=== PATIENT | female | born 1950 | race Caucasian/White ===

== ENCOUNTER 2017-09-01 10:44 | Inpatient (IN) | payer MEDICARE, MEDICAID ==
[~2017-09-01] VITALS: Ht 157.5 cm; Wt 53.1 kg
[~2017-09-01 10:44] MED LIST: ACET500T68 PO; ALPR-1 PO; ALPR-445 PO; ALPR-459 PO; ALPR-460 PO; ATOR20TA65 PO; BUPR-124 PO; CA C1TAB85 PO; CALC-18 PO; CALC1TAB85 PO; CALC600T63 PO; CHOL10005 PO; CHOL200025 PO; CHOL200074 PO; CHOL500016 PO; DESM0.1T12 PO; DESM0.2T15 PO; DEXT5CAP3 PO; DICL100G39 TOP; DICY20TA70 PO; DUL30 PO; DULO30CA35 PO; DULO30CA6 PO; DULO60CA56 PO; ESTR0.5T16 PO; ESTR1TAB PO; FENT-15 TD; FLUT16SP20 NS; FLUT9.9S; FURO-45 PO; GAB300 PO; GABA-549 PO; GLUC100026 PO; LEVO50TA86 PO; LEVO75TA73 PO; LIDO10VI16 INTRA-ART; LISI2.5T60 PO; LISI5TAB25 PO; LOPE-109 PO; LORA-630 PO; LOSA-50 PO; LOSA100T67 PO; LOSA50TA72 PO; MES400 PO; MESA0.374 PO; MESA1.2T2 PO; MESA800T3 PO; MICO45CR VG; MIRT7.5T2 PO; MOM PO; MORP-1 PO; MORP-20 PO; MORP-21 PO; MORP-51 PO; MORP20CA PO; MORP60TA50 PO; Morphine Sulfate PO; OMEP-125 PO; ONDA-2 PO; ONDA4TAB PO; OSE75 PO; OXYC-865 PO; POLY15DR54 OP; POLY17PO25 PO; PROM-110 PO; PROM25SU9 RC; TRI40I IART; ZOST19404 SQ; [UNRECOGNIZED DRUG - CODE] PO; [UNRECOGNIZED DRUG - CODE] PO; [UNRECOGNIZED DRUG - CODE] PO; [UNRECOGNIZED DRUG - OTHER]; vit d
--- NOTE | 2017-09-01 10:56 | ER Report ---
History and Physical Time Seen By MD: 10:56 HPI/ROS CHIEF COMPLAINT: Acute renal failure HISTORY OF PRESENT ILLNESS: 67-year-old female patient presents to emergency room with complaint of acute renal failure. Patient states that she has been having shortness of breath for the past several months. She states that she had seen her primary care provider. Her primary care provider started her on Wellbutrin to help with smoking cessation. Patient states that she has been smoking for quite some time this been told numerous times that she quit. She states that she follow-up with her primary care provider and was told that she had concerning labs was directed here to the emergency room. Patient does have some dementia and history is difficult to obtain from the patient. REVIEW OF SYSTEMS: Respiratory: As noted above Cardiovascular: No chest pain, no palpitations. Gastrointestinal: No vomiting, no abdominal pain. Musculoskeletal: No back pain. Allergies: Coded Allergies: NSAIDS (Non-Steroidal Anti-Inflamma (Unverified Allergy, Unknown, GI UPSET -NO ULCERS, 09/01/17) Penicillins (Unverified Adverse Reaction, Unknown, GETS YEAST INFECTION AFTER USING IT, 09/01/17) Home Meds Active Scripts Levothyroxine Sodium (LEVOTHYROXINE SODIUM) 50 Mcg Tablet, 1 TAB PO DAILY, #30 TAB 12 Refills Prov:NEERU ALDANA APRN 08/25/17 Morphine Sulfate (MORPHINE SULFATE ER) 30 Mg Tablet.er, 1 TAB PO Q12H, #60 TAB 0 Refills Prov:NEERU ALDANA APRN-Jamaal 08/13/17 Bupropion Hcl (BUPROPION XL) 150 Mg Tab.er.24h, 1 TAB PO BID, #60 TAB 2 Refills take one tab daily x 3 days then increase to 1 tab twice daily thereafter Prov:NEERU ALDNAA APRN 07/24/17 Mesalamine (APRISO) 0.375 Gm Cap.er.24h, 4 CAP PO DAILY, #120 CAP 5 Refills Prov:NEERU ALDANA APRN-Jamaal 07/15/17 Estradiol (ESTRADIOL) 0.5 Mg Tablet, 1 TAB PO QDAY, #30 TAB 10 Refills Prov:NEERU ALDANA APRN 07/15/17 Duloxetine HCl (Duloxetine HCl) 30 Mg Capsule.dr, 3 CAP PO DAILY, #90 CAP 10 Refills 2 caps in the morning and 1 cap in the afternoon Prov:NEERU ALDANA APRN-C 07/15/17 Atorvastatin Calcium (ATORVASTATIN CALCIUM) 20 Mg Tablet, 1 TAB PO QHS, #90 TAB 1 Refill Prov:NEERU ALDANA APRNP-C 07/02/17 Gabapentin (GABAPENTIN) 300 Mg Capsule, 1 CAP PO TID, #90 CAPSULE 10 Refills Prov:NEERU ALDANA APRNP-C 07/02/17 Omeprazole (OMEPRAZOLE) 20 Mg Capsule.dr, 1 CAP PO QAM, #90 CAP 3 Refills Prov:NEERU ALDANA APRN-C 06/24/17 Glucosamine Sulfate 2KCL (GLUCOSAMINE) 1,000 Mg Tablet, 1 TAB PO DAILY, #30 TAB 12 Refills Prov:NEERU ALDANA APRNC 05/14/17 Alprazolam 0.25 Mg Tab (XANAX 0.25 MG TAB) 0.25 Mg Tablet, 0.5-1 TAB PO BID Y for ANXIETY, #60 TAB 2 Refills Prov:NEERU ALDANA APRN-C 04/29/17 Lisinopril (LISINOPRIL) 2.5 Mg Tablet, 1 TAB PO DAILY, #30 TAB 10 Refills Prov:NEERU ALDANA APRN-C 04/13/17 Dicyclomine Hcl (DICYCLOMINE HCL) 20 Mg Tablet, 1 TAB PO DAILY, #30 TAB 10 Refills Prov:NEERU ALDANA APRNC 02/17/17 Calcium Carbonate/Vitamin D3 (Caltrate 600 + D Soft Chew Tab) 1 Each Tab.chew, 1 TABCHEW PO BID, #60 TABCHEW 6 Refills Prov:CAITLYN RUDD MD 10/07/16 Ondansetron Hcl (ONDANSETRON HCL) 4 Mg Tablet, 1 TAB PO Q4-6H Y for NAUSEA, #30 TAB 10 Refills Prov:NEERU ALDANA APRNPAnnetteC 08/05/16 Polyvinyl Alcohol/Povidone (ARTIFICIAL TEARS DROPS) 15 Ml Drops, 1 DROP OP PRN Y for ITCHING, #1 BOTTLE 5 Refills Prov:KATYANEERU ARACELI [facility] 08/05/16 Mag Hydrox/Al Hydrox/Simeth (TN ACID SUSPENSION) 355 Ml Oral.susp, 15 ML PO Q4H Y for CONSTIPATION, #1 BOTTLE Prov:NEERU ALDANA APRN [facility] 08/05/16 Magnesium Hydroxide (MILK OF MAGNESIA) 400 Mg/5 Ml Oral.susp, 15-30 ML PO DIRECTED Y for CONSTIPATION, #1 BOTTLE Not to exceed 2 doses in 24 hours Prov:NEERU ALDANA APRN [facility] 08/05/16 Fluticasone Propionate (Flonase Allergy Relief) 9.9 Ml [place].susp, 1 SPRAY NA DAILY, #1 BOTTLE 10 [facility]ills [facility] 08/05/16 Polyethylene Glycol 3350 (MIRALAX) 17 Gm Powd.pack, 17 GM PO Mon, Weds, Thu, #1 BOTTLE 10 Refills Prov:[facility] 08/05/16 Reported Medications Acetaminophen (TYLENOL EXTRA STRENGTH) 500 Mg Tablet, 2 TAB PO Q8H Y for PAIN, TAB 07/30/17 Discontinued Scripts Loperamide Hcl (ANTI-DIARRHEAL) 2 Mg Tablet, 2 MG PO DIRECTED Y for DIARRHEA , #30 TAB 10 Refills 2 tab by mouth after 1st loose stool, then take 1tab after subsequent loose stools PRN Prov:NEERU ALDANA APRN [facility] 08/05/16 Guaifenesin/Dextromethorphan (Q-TUSSIN DM SYRUP) 120 Ml Syrup, 5 ML PO Q4-6H Y for COUGH, #237 BOTTLE 3 Refills Prov:NEERU ALDANA APRN [facility] 08/05/16 Mirtazapine (MIRTAZAPINE) 7.5 Mg Tablet, 0.5 TAB PO HS, #30 TAB 6 Refills Prov:JODI LAWSON MD 02/23/15 Levothyroxine Sodium (LEVOTHYROXINE SODIUM) 75 Mcg Tablet, 1 TAB PO QDAY, #30 TAB 10 Refills Prov:NEERU ALDANA APRN [facility] 04/13/17 Past Medical/Surgical History Patient has a past medical history of migraines, tremor, dementia, frequent UTIs , left arm pain, weakness, arthritis, osteoporosis, back pain, hypothyroidism, depression. Patient has surgical history of hysterectomy, teeth surgery. Reviewed Nurses Notes: Yes Hx Smoking: Yes (3-4 packs weekly) Smoking Status: Current: Every Day Smoker Exposure to Second Hand Smoke?: Yes Hx Substance Use Disorder: No Hx Alcohol Use: No Constitutional Vital Sign - Last 24 Hours 09/01/17 09/01/17 09/01/17 09/01/17 10:55 11:03 11:13 11:14 Temp 99.2 Pulse 97 85 Resp 12 10 B/P (MAP) 109/65 102/66 (78) Pulse Ox 75 99 O2 Delivery Room Air O2 Flow Rate 3.0 09/01/17 09/01/17 09/01/17 09/01/17 11:29 11:30 11:44 11:49 Pulse 85 89 88 Resp 11 29 17 B/P (MAP) 102/48 (66) Pulse Ox 99 99 89 09/01/17 09/01/17 09/01/17 09/01/17 12:00 12:19 12:30 12:34 Pulse 85 84 Resp 14 B/P (MAP) 78/64 (69) 92/52 (65) 09/01/17 09/01/17 09/01/17 09/01/17 12:49 12:54 13:00 13:09 Pulse 83 85 82 Resp 21 16 14 B/P (MAP) 95/58 (70) 09/01/17 09/01/17 09/01/17 09/01/17 13:24 13:30 13:54 13:56 Pulse 90 84 85 Resp 38 11 18 B/P (MAP) 94/83 (87) 09/01/17 09/01/17 09/01/17 09/01/17 14:01 14:16 14:30 14:31 Pulse 82 84 83 Resp 9 19 7 B/P (MAP) 102/58 (73) 09/01/17 09/01/17 09/01/17 09/01/17 14:46 14:51 14:56 15:00 Pulse 85 84 82 Resp 13 12 11 B/P (MAP) 102/59 (73) 09/01/17 09/01/17 09/01/17 12/19/17 15:01 15:06 15:11 15:26 Pulse 82 82 ??? 85 Resp 7 8 11 Pulse Ox 100 09/01/17 09/01/17 09/01/17 09/01/17 15:30 15:41 15:56 16:00 Pulse 82 79 Resp 10 8 B/P (MAP) 101/64 (76) 99/63 (75) 09/01/17 09/01/17 09/01/17 09/01/17 16:11 16:26 16:30 16:41 Pulse 80 77 75 Resp 9 14 9 B/P (MAP) 110/61 (77) 09/01/17 09/01/17 09/01/17 09/01/17 16:56 17:01 17:16 18:06 Pulse 75 75 70 Resp 7 9 10 B/P (MAP) 94/55 (68) 09/01/17 09/01/17 09/01/17 09/01/17 18:11 18:26 18:30 18:41 Pulse 77 74 74 Resp 11 8 11 B/P (MAP) 102/60 (74) Pulse Ox 94 98 98 09/01/17 18:46 Pulse 73 Resp 15 Pulse Ox 99 Intake and Output 09/01/17 09/01/17 09/02/17 15:00 23:00 07:00 Intake Total 1000 ml 1000 ml Output Total 300 ml Balance 700 ml 1000 ml Physical Exam General Appearance: The patient is alert, has no immediate need for airway protection and no current signs of toxicity. Respiratory: Chest is non tender, lungs are clear to auscultation. Cardiac: regular rate and rhythm Gastrointestinal: Abdomen is soft and non tender, no masses, bowel sounds normal. Musculoskeletal: Neck: Neck is supple and non tender. Extremities have full range of motion and are non tender. Skin: No rashes or lesions. DIFFERENTIAL DIAGNOSIS: After history and physical exam differential diagnosis was considered for acute renal failure, pulmonary regular nephritis, tubular necrosis. Medical Decision Making Data Points Result Diagram: 09/01/17 1120 09/01/17 1447 Laboratory Hematology Test 09/01/17 11:20 09/01/17 11:48 09/01/17 14:47 Red Blood Count 3.99 M/uL (4.17-5.56) Mean Corpuscular Volume 92.5 fL (80.0-96.0) Mean Corpuscular Hemoglobin 30.2 pg (26.0-33.0) Mean Corpuscular Hemoglobin Concent 32.6 g/dL (32.0-36.0) Red Cell Distribution Width 14.2 % (11.5-14.5) Mean Platelet Volume 8.2 fL (7.2-11.1) Neutrophils (%) (Auto) 59.7 % (39.4-72.5) Lymphocytes (%) (Auto) 25.4 % (17.6-49.6) Monocytes (%) (Auto) 11.9 % (4.1-12.4) Eosinophils (%) (Auto) 2.0 % (0.4-6.7) Basophils (%) (Auto) 1.0 % (0.3-1.4) Nucleated RBC Relative Count (auto) 0.0 /100WBC Neutrophils # (Auto) 4.0 K/uL (2.0-7.4) Lymphocytes # (Auto) 1.7 K/uL (1.3-3.6) Monocytes # (Auto) 0.8 K/uL (0.3-1.0) Eosinophils # (Auto) 0.1 K/uL (0.0-0.5) Basophils # (Auto) 0.1 K/uL (0.0-0.1) Nucleated RBC Absolute Count (auto) 0.00 K/uL Sodium Level 142 mmol/L (137-145) Potassium Level 4.5 mmol/L (3.5-5.0) Chloride Level 101 mmol/L (98-107) Carbon Dioxide Level 26 mmol/L (22-31) Blood Urea Nitrogen 36 mg/dl (7-18) Random Glucose 88 mg/dl (75-110) Calcium Level 10.5 mg/dl (8.4-10.2) Total Bilirubin 0.6 mg/dl (0.2-1.3) Aspartate Amino Transf (AST/SGOT) 26 U/L (0-35) Alanine Aminotransferase (ALT/SGPT) 32 U/L (0-56) Alkaline Phosphatase 94 U/L (0-126) Total Protein 6.7 gm/dl (6.3-8.2) Albumin 4.0 g/dl (3.5-5.0) Urine Color Zarina Urine Clarity Slightly-cloudy Urine pH 5.0 pH (4.8-9.5) Urine Specific Kohler 1.018 Urine Protein Negative mg/dL (NEGATIVE) Urine Glucose (UA) Negative mg/dL (NEGATIVE) Urine Ketones Trace mg/dL (NEGATIVE) Urine Blood Negative (NEGATIVE) Urine Nitrite Negative (NEGATIVE) Urine Bilirubin Negative (NEGATIVE) Urine Urobilinogen Negative mg/dL (0.2-1.9) Urine Leukocyte Esterase Negative (NEGATIVE) Urine RBC None /HPF (0-2/HPF) Urine WBC 2 /HPF (0-5/HPF) Urine Squamous Epithelial Cells Few /LPF (NONE-FEW) Urine Bacteria Negative /HPF (NONE-FEW) Urine Hyaline Casts Many /LPF (NONE-FEW) Urine Mucus None /HPF (NONE-FEW) Urine Osmolality 366 mosm/K (500-800) Urine Random Creatinine 254.0 mg/dl Urine Random Sodium 10 MEQ/L Urine Opiates Screen Positive Urine Barbiturates Screen Negative Ur Tricyclic Antidepressants Screen Negative Urine Phencyclidine Screen Negative Urine Amphetamines Screen Negative Urine Benzodiazepines Screen Negative Urine Cocaine Screen Negative Urine Cannabinoids Screen Negative Creatinine 2.30 mg/dl (0.52-1.04) Glomerular Filtration Rate Calc 21.2 Chemistry Test 09/01/17 11:20 09/01/17 11:48 09/01/17 14:47 White Blood Count 6.7 k/uL (4.5-11.0) Red Blood Count 3.99 M/uL (4.17-5.56) Hemoglobin 12.0 g/dL (12.0-16.0) Hematocrit 36.9 % (34.0-47.0) Mean Corpuscular Volume 92.5 fL (80.0-96.0) Mean Corpuscular Hemoglobin 30.2 pg (26.0-33.0) Mean Corpuscular Hemoglobin Concent 32.6 g/dL (32.0-36.0) Red Cell Distribution Width 14.2 % (11.5-14.5) Platelet Count 273 K/uL (150-450) Mean Platelet Volume 8.2 fL (7.2-11.1) Neutrophils (%) (Auto) 59.7 % (39.4-72.5) Lymphocytes (%) (Auto) 25.4 % (17.6-49.6) Monocytes (%) (Auto) 11.9 % (4.1-12.4) Eosinophils (%) (Auto) 2.0 % (0.4-6.7) Basophils (%) (Auto) 1.0 % (0.3-1.4) Nucleated RBC Relative Count (auto) 0.0 /100WBC Neutrophils # (Auto) 4.0 K/uL (2.0-7.4) Lymphocytes # (Auto) 1.7 K/uL (1.3-3.6) Monocytes # (Auto) 0.8 K/uL (0.3-1.0) Eosinophils # (Auto) 0.1 K/uL (0.0-0.5) Basophils # (Auto) 0.1 K/uL (0.0-0.1) Nucleated RBC Absolute Count (auto) 0.00 K/uL Calcium Level 10.5 mg/dl (8.4-10.2) Total Bilirubin 0.6 mg/dl (0.2-1.3) Aspartate Amino Transf (AST/SGOT) 26 U/L (0-35) Alanine Aminotransferase (ALT/SGPT) 32 U/L (0-56) Alkaline Phosphatase 94 U/L (0-126) Total Protein 6.7 gm/dl (6.3-8.2) Albumin 4.0 g/dl (3.5-5.0) Urine Color Zarina Urine Clarity Slightly-cloudy Urine pH 5.0 pH (4.8-9.5) Urine Specific Kohler 1.018 Urine Protein Negative mg/dL (NEGATIVE) Urine Glucose (UA) Negative mg/dL (NEGATIVE) Urine Ketones Trace mg/dL (NEGATIVE) Urine Blood Negative (NEGATIVE) Urine Nitrite Negative (NEGATIVE) Urine Bilirubin Negative (NEGATIVE) Urine Urobilinogen Negative mg/dL (0.2-1.9) Urine Leukocyte Esterase Negative (NEGATIVE) Urine RBC None /HPF (0-2/HPF) Urine WBC 2 /HPF (0-5/HPF) Urine Squamous Epithelial Cells Few /LPF (NONE-FEW) Urine Bacteria Negative /HPF (NONE-FEW) Urine Hyaline Casts Many /LPF (NONE-FEW) Urine Mucus None /HPF (NONE-FEW) Urine Osmolality 366 mosm/K (500-800) Urine Random Creatinine 254.0 mg/dl Urine Random Sodium 10 MEQ/L Urine Opiates Screen Positive Urine Barbiturates Screen Negative Ur Tricyclic Antidepressants Screen Negative Urine Phencyclidine Screen Negative Urine Amphetamines Screen Negative Urine Benzodiazepines Screen Negative Urine Cocaine Screen Negative Urine Cannabinoids Screen Negative Glomerular Filtration Rate Calc 21.2 Toxicology Test 09/01/17 11:48 Urine Opiates Screen Positive Urine Barbiturates Screen Negative Ur Tricyclic Antidepressants Screen Negative Urine Phencyclidine Screen Negative Urine Amphetamines Screen Negative Urine Benzodiazepines Screen Negative Urine Cocaine Screen Negative Urine Cannabinoids Screen Negative Urinalysis Test 09/01/17 11:48 Urine Color Zarina Urine Clarity Slightly-cloudy Urine pH 5.0 pH (4.8-9.5) Urine Specific Kohler 1.018 Urine Protein Negative mg/dL (NEGATIVE) Urine Glucose (UA) Negative mg/dL (NEGATIVE) Urine Ketones Trace mg/dL (NEGATIVE) Urine Blood Negative (NEGATIVE) Urine Nitrite Negative (NEGATIVE) Urine Bilirubin Negative (NEGATIVE) Urine Urobilinogen Negative mg/dL (0.2-1.9) Urine Leukocyte Esterase Negative (NEGATIVE) Urine RBC None /HPF (0-2/HPF) Urine WBC 2 /HPF (0-5/HPF) Urine Squamous Epithelial Cells Few /LPF (NONE-FEW) Urine Bacteria Negative /HPF (NONE-FEW) Urine Hyaline Casts Many /LPF (NONE-FEW) Urine Mucus None /HPF (NONE-FEW) Urine Osmolality 366 mosm/K (500-800) Urine Random Creatinine 254.0 mg/dl Urine Random Sodium 10 MEQ/L EKG/Imaging Imaging FACILITY: [facility] [place] PATIENT NAME: German Martinez : 09/30/1944 MR: [id number] V: [id number] EXAM DATE: ORDERING PHYSICIAN: SAVANNAH HERNANDEZ TECHNOLOGIST: Location: [facility] [place] Patient: German Martinez : 09/30/1944 Visit/Account:[id number] Date of Sevice: 09/01/2017 Exam type: ARTERIAL LOWER EXT RIGHT History: Right cold right leg Comparison: None. Findings: The peak systolic velocities in the right lower extremity are as follows in centimeters per second: Right common femoral artery 168 Profunda femoral artery 231 Proximal SFA 260 Mid SFA 162 Distal SFA 84 Proximal popliteal artery 91 Distal popliteal artery 110 Peroneal artery 178 Proximal posterior tibial artery 39 Mid posterior tibial artery 77 Distal posterior tibial artery 128 Anterior tibial artery 124 Dorsalis pedis artery on the right 24 Dorsalis pedis artery and the left 24 and posterior tibial artery on the left 106 IMPRESSION: Vascular flow was demonstrated throughout the right lower extremity arterial tree without occlusion. No high-grade narrowings were identified. The peak systolic velocities in the dorsalis pedis arteries are symmetric bilaterally Report Dictated By: Jaimie Chong MD at 09/01/2017 4:03 PM Report E-Signed By: Jaimie Chong MD at 09/01/2017 4:10 PM FACILITY: [facility] [place] PATIENT NAME: Ying Horton : 1950 MR: [id number] V: [id number] EXAM DATE: [id number] ORDERING PHYSICIAN: SAVANNAH HERNANDEZ TECHNOLOGIST: Location: [facility] [place] Patient: Ying Horton : 1950 Visit/Account:[id number] Date of Sevice: 09/01/2017 EXAMINATION: CT head without IV contrast HISTORY: Confusion. COMPARISON: None. TECHNIQUE: Contiguous axial images were obtained from the skull base to the vertex without intravenous contrast. Sagittal and coronal reformatted images are also submitted. One of the following dose optimization techniques was utilized in the performance of this exam: Automated exposure control; adjustment of the mA and/ or kV according to the patient's size; or use of an iterative reconstruction technique. Specific details can be referenced in the facility's radiology CT exam operational policy. FINDINGS: The exam is mildly limited by patient motion artifact. Brain volume: Normal. Ventricles: Normal. Acute ischemic changes: None. Hemorrhage: None. Masses/edema: None. Mendenhall-white: On the axial images there is vague loss of mendenhall-white differentiation in the left superior cerebellum, not as well visualized on the coronal or sagittal images. No mass effect on the 4th ventricle. White matter: A few hypodensities in the deep white matter bilaterally. Vessels: Calcified plaque of both carotid siphons. Extra-axial: Negative. Calvarium/scalp: Negative. Skull base/visualized face: Negative. Visualized sinuses/orbits: Mild mucosal thickening in the bilateral ethmoid air cells. Mild nasal septal deviation to the right. IMPRESSION: 1. Exam limited by motion, with possible ischemia, inflammation or edema from an underlying mass in the left superior cerebellum, versus artifact. MRI of the brain without and with IV contrast is recommended for further evaluation. 2. No acute hemorrhage. 3. Mild nonspecific white matter disease suspicious for chronic vessel ischemia. These findings were discussed with SAVANNAH HERNANDEZ at 09/01/2017 3:37 PM. Report Dictated By: Pam Tuttle MD at 09/01/2017 3:33 PM Report E-Signed By: Pam Tuttle MD at 09/01/2017 3:42 PM FACILITY: [facility] [place] PATIENT NAME: Ying Horton : 1950 MR: [id number] V: [id number] EXAM DATE: [id number] ORDERING PHYSICIAN: SAVANNAH HERNANDEZ TECHNOLOGIST: Location: [facility] [place] Patient: Ying Horton : 1950 Visit/Account:[id number] Date of Sevice: 09/01/2017 Examination: MR brain without contrast History: Confusion, abnormal head CT Comparison: Head CT same day Technique: Multiplane MR imaging was performed through the brain without contrast. Findings: Diffusion: None Ventricles: Normal Midline shift: None Extraaxial fluid: None. Midline craniocervical structures: Normal Parenchyma: Mild atrophy. No cerebellar abnormality. Mild confluent periventricular white matter high signal. A few scattered white matter high signal foci. Vascular flow voids: Normal Orbits and paranasal sinuses: Normal Impression: 1. No acute finding. 2. No cerebellar abnormality. The finding described on comparison head CT represents artifact. 3. Mild chronic small vessel ischemic change. Report Dictated By: Jacob Olivo MD at 09/01/2017 6:20 PM Report E-Signed By: Jacob Olivo MD at 09/01/2017 6:25 PM FACILITY: [facility] [place] PATIENT NAME: Ying Horton : 1950 MR: [id number] V: [id number] EXAM DATE: [id number] ORDERING PHYSICIAN: SAVANNAH HERNANDEZ TECHNOLOGIST: Location: [facility] [place] Patient: Ying Horton : 1950 Visit/Account:[id number] Date of Sevice: 09/01/2017 Exam type: CHEST PA AND LAT History: shortness of breath Comparison: September 22, 2014. Findings: There is mild hyperexpansion of the lung byers similar to the prior study. There is no evidence of focal infiltrates pleural effusions or overt pulmonary edema. Cardiac size is mildly enlarged. There is a prominent S-shaped scoliosis of the thoracal lumbar spine. Incompletely imaged is a left shoulder arthroplasty IMPRESSION: 1. Mild hyperexpansion lung byers although no evidence of acute-appearing pulmonary consolidation Report Dictated By: Jaimie Chong MD at 09/01/2017 12:33 PM Report E-Signed By: Jaimie Chong MD at 09/01/2017 12:35 PM ED Course/Re-evaluation ED Course Patient was admitted to exam room, history and physical were obtained. Differential diagnoses were considered. On examination patient was confused, she would be able to give answers for about 45 seconds and would become lost in which she was saying. Repeat labs were done, a CBC, CMP, urinalysis, urine osmolality, urine sodium and urine creatinine. The results may did appear that the patient is perhaps prerenal. Patient received 2 L of lactated Ringer's in the Emergency room. A repeat creatinine was done which was 2.3. The cath lab radiological technologist who came and danni blood on her for the repeat creatinine was seen 100 drawn labs on her last week as well as earlier today. She stated patient was definitely altered, the last week she was able to talk about her cat and carry on conversation, however today and at this point in time she was definitely not herself. A drug screen was ordered at that time which was positive only for opiates. A CT scan showed an abnormality in the posterior brain. The radiologist recommended an MRI. That was done which was negative. I discussed the case with Dr. Moore, hospitalist, who agreed to accept the patient for admission with the diagnosis of acute renal failure and altered mental status. It is our thought that the Wellbutrin could be the underlying cause of the altered mental status however I'm unsure at this time. Decision to Disposition Date: Sep 01, 2017 Decision to Disposition Time: 18:38 Depart Departure Latest Vital Signs Vital Signs Date Time Temp Pulse Resp B/P (MAP) Pulse Ox O2 Delivery O2 Flow Rate FiO2 09/01/17 18:46 73 15 99 09/01/17 18:30 102/60 (74) 09/01/17 11:03 3.0 09/01/17 10:55 99.2 Room Air Impression: Primary Impression: ANTHONY (acute kidney injury) Additional Impression: Altered mental status Condition: Condition Unchanged Disposition: Admitted from ER Referrals: NEERU ALDANA APRN [employer] (PCP) Problem Qualifiers Additional Impression: Altered mental status Altered mental status type: disorientation Qualified Codes: R41.0 - Disorientation, unspecified SAVANNAH HERNANDEZ [employer] Sep 01, 2017 10:56
[2017-09-01 11:35] LABS: PLATELET COUNT, AUTOMATED 273 K/uL (150-450)
[2017-09-01] MEDS: LR(*) 1000 ML BAG 1,000 ML IV PRN ×2 (11:49→13:23)
--- NOTE | 2017-09-01 12:38 | RADIOLOGY IMAGING REPORT ---
[place] [facility] [place]IENT NAME: Ying Horton : 1950 MR: [id number] V: [id number] EXAM DATE: ORDERING PHYSICIAN: SAVANNAH HERNANDEZ TECHNOLOGIST: Location: [facility] Patient: Ying Horton : 1950 Visit/Account:[id number] Date of Sevice: 09/01/2017 Exam type: CHEST PA AND LAT History: shortness of breath Comparison: September 22, 2014. Findings: There is mild hyperexpansion of the lung byers similar to the prior study. There is no evidence of focal infiltrates pleural effusions or overt pulmonary edema. Cardiac size is mildly enlarged. Ther e is a prominent S-shaped scoliosis of the thoracal lumbar spine. Incompletely imaged is a left shou lder arthroplasty IMPRESSION: 1. Mild hyperexpansion lung byers although no evidence of acute-appearing pulmonary consolidation Report Dictated By: Jaimie Chong MD at 09/01/2017 12:33 PM Report E-Signed By: Jaimie Chong MD at 09/01/2017 12:35 PM WSN:[id number]
[2017-09-01] MEDS ORDERED: LR(*) 1000 ML BAG 1,000 ML IV PRN (13:05)
--- NOTE | 2017-09-01 14:10 | RADIOLOGY IMAGING REPORT ---
[place] [facility] [place]: Ying Horton : 1950 MR: [id number] V: [id number] EXAM DATE: ORDERING PHYSICIAN: SAVANNAH HERNANDEZ TECHNOLOGIST: Location: [facility] [place] Patient: Ying Horton : 1950 Visit/Account:[id number] Date of Sevice: 09/01/2017 Renal ultrasound from 09/01/2017 HISTORY: Elevated creatinine, dehydration. Confusion. COMPARISON: None TECHNIQUE: Multiple longitudinal and transverse real-time scans were obtained of the kidneys and blad bernie. FINDINGS: The kidneys are small. The right kidney measures 8.2 x 3 x 4.5 cm. The left kidney measures 9.2 x 4.4 x 3.8 cm. Renal cortical echotexture is borderline increased. The right kidney is nearly i soechoic with the adjacent liver. There is no evidence of hydronephrosis on either side. There are no perinephric fluid collections. Resistive index measures 0.68 on both sides. The urinary bladder is suboptimally distended. Bladder volume was 23 mL's. IMPRESSION: 1. Atrophic appearing kidneys. Borderline increased renal parenchymal echotexture raising the possibi lity of medical renal disease. 2. There is no evidence of upper tract obstruction. 3. Limited distention of the urinary bladder. Report Dictated By: Con Rubio MD at 09/01/2017 2:02 PM Report E-Signed By: Con Rubio MD at 09/01/2017 2:06 PM WSN:[id number]
--- NOTE | 2017-09-01 15:47 | RADIOLOGY IMAGING REPORT ---
FACILITY: [facility] - [place] PATIENT NAME: Ying Horton : 1950 MR: [id number] V: [id number] EXAM DATE: ORDERING PHYSICIAN: SAVANNAH HERNANDEZ TECHNOLOGIST: Location: [facility] [place] Patient: Ying Horton : 1950 Visit/Account:[id number] Date of Sevice: 09/01/2017 EXAMINATION: CT head without IV contrast HISTORY: Confusion. COMPARISON: None. TECHNIQUE: Contiguous axial images were obtained from the skull base to the vertex without intraven ous contrast. Sagittal and coronal reformatted images are also submitted. One of the following dose optimization techniques was utilized in the performance of this exam: Autom ated exposure control; adjustment of the mA and/or kV according to the patient's size; or use of an i terative reconstruction technique. Specific details can be referenced in the facility's radiology C T exam operational policy. FINDINGS: The exam is mildly limited by patient motion artifact. Brain volume: Normal. Ventricles: Normal. Acute ischemic changes: None. Hemorrhage: None. Masses/edema: None. Mendenhall-white: On the axial images there is vague loss of mendenhall-white differentiation in the left superio r cerebellum, not as well visualized on the coronal or sagittal images. No mass effect on the 4th good tricle. White matter: A few hypodensities in the deep white matter bilaterally. Vessels: Calcified plaque of both carotid siphons. Extra-axial: Negative. Calvarium/scalp: Negative. Skull base/visualized face: Negative. Visualized sinuses/orbits: Mild mucosal thickening in the bilateral ethmoid air cells. Mild nasal se ptal deviation to the right. IMPRESSION: 1. Exam limited by motion, with possible ischemia, inflammation or edema from an underlying mass in t he left superior cerebellum, versus artifact. MRI of the brain without and with IV contrast is recomm ended for further evaluation. 2. No acute hemorrhage. 3. Mild nonspecific white matter disease suspicious for chronic vessel ischemia. These findings were discussed with SAVANNAH HERNANDEZ at 09/01/2017 3:37 PM. Report Dictated By: Pam Tuttle MD at 09/01/2017 3:33 PM Report E-Signed By: Pam Tuttle MD at 09/01/2017 3:42 PM [id number]
[2017-09-01] MEDS ORDERED: GADOBENATE 529MG/1ML 15ML VIAL IVP ONE (16:05)
[2017-09-01] MEDS ORDERED: GADOBENATE 529MG/1ML 10ML VIAL IVP ONE (16:28)
[2017-09-01] MEDS ORDERED: LORazepam 2 MG/ML VIAL IVP ONE (17:20)
--- NOTE | 2017-09-01 18:29 | RADIOLOGY IMAGING REPORT ---
FACILITY: [facility] - [place] PATIENT NAME: Ying Horton : 1950 MR: [id number] V: [id number] EXAM DATE: ORDERING PHYSICIAN: SAVANNAH HERNANDEZ TECHNOLOGIST: Location: [facility] [place] Patient: Ying Horton : 1950 Visit/Account:[id number] Date of Sevice: 09/01/2017 Examination: MR brain without contrast History: Confusion, abnormal head CT Comparison: Head CT same day Technique: Multiplane MR imaging was performed through the brain without contrast. Findings: Diffusion: None Ventricles: Normal Midline shift: None Extraaxial fluid: None. Midline craniocervical structures: Normal Parenchyma: Mild atrophy. No cerebellar abnormality. Mild confluent periventricular white matter high signal. A few scattered white matter high signal foci. Vascular flow voids: Normal Orbits and paranasal sinuses: Normal Impression: 1. No acute finding. 2. No cerebellar abnormality. The finding described on comparison head CT represents artifact. 3. Mild chronic small vessel ischemic change. Report Dictated By: Jacob Olivo MD at 09/01/2017 6:20 PM Report E-Signed By: Jacob Olivo MD at 09/01/2017 6:25 PM [id number]
[2017-09-01 19:46] VITALS: BP 117/63
--- NOTE | 2017-09-01 20:53 | History & Physical ---
History of Present Illness History of Present Illness 67yo female with a h/o chronic pain who was brought to the ER for an elevated creatinine. The is history is from the ER provider because the patient is very somnolent and there is no one else with the patient. She apparently was placed on Wellbutrin about 2 weeks ago for smoking cessation. She became more confused so was stopped on the medication 4 days ago. In the ER, she was given 2 liters of fluid and 1 mg of Ativan for the MRI. History Problems: (1) LUKE (obstructive sleep apnea) Status: Chronic (2) Hypothyroidism Onset Date: 09/22/2014 Status: Chronic (3) Hypertension, benign Onset Date: 10/05/2014 Status: Chronic (4) Ankylosing spondylitis Status: Chronic (5) Enuresis Status: Chronic (6) GERD (gastroesophageal reflux disease) Status: Chronic (7) Depression Status: Chronic (8) Tremor Status: Chronic (9) Ulcerative colitis Status: Chronic (10) Tobacco abuse Status: Chronic Home Meds Active Scripts Levothyroxine Sodium (LEVOTHYROXINE SODIUM) 50 Mcg Tablet, 1 TAB PO DAILY, #30 TAB 12 Refills Prov:NEERU ALDANA APRN 08/25/17 Morphine Sulfate (MORPHINE SULFATE ER) 30 Mg Tablet.er, 1 TAB PO Q12H, #60 TAB 0 Refills Prov:NEERU ALDANA APRN 08/13/17 Bupropion Hcl (BUPROPION XL) 150 Mg Tab.er.24h, 1 TAB PO BID, #60 TAB 2 Refills take one tab daily x 3 days then increase to 1 tab twice daily thereafter Prov:NEERU ALDANA APRN 07/24/17 Mesalamine (APRISO) 0.375 Gm Cap.er.24h, 4 CAP PO DAILY, #120 CAP 5 Refills Prov:NEERU ALDANA APRN 07/15/17 Estradiol (ESTRADIOL) 0.5 Mg Tablet, 1 TAB PO QDAY, #30 TAB 10 Refills Prov:NEERU ALDANA APRN 07/15/17 Duloxetine HCl (Duloxetine HCl) 30 Mg Capsule.dr, 3 CAP PO DAILY, #90 CAP 10 Refills 2 caps in the morning and 1 cap in the afternoon Prov:NEERU ALDANA APRNC 07/15/17 Atorvastatin Calcium (ATORVASTATIN CALCIUM) 20 Mg Tablet, 1 TAB PO QHS, #90 TAB 1 Refill Prov:NEERU ALDANA APRN 07/02/17 Gabapentin (GABAPENTIN) 300 Mg Capsule, 1 CAP PO TID, #90 CAPSULE 10 Refills Prov:NEERU ALDANA APRN 07/02/17 Omeprazole (OMEPRAZOLE) 20 Mg Capsule.dr, 1 CAP PO QAM, #90 CAP 3 Refills Prov:NEERU ALDANA APRN 06/24/17 Glucosamine Sulfate 2KCL (GLUCOSAMINE) 1,000 Mg Tablet, 1 TAB PO DAILY, #30 TAB 12 Refills Prov:NEERU ALDANA APRNC 05/14/17 Alprazolam 0.25 Mg Tab (XANAX 0.25 MG TAB) 0.25 Mg Tablet, 0.5-1 TAB PO BID Y for ANXIETY, #60 TAB 2 Refills Prov:NEERU ALDANA APRNC 04/29/17 Lisinopril (LISINOPRIL) 2.5 Mg Tablet, 1 TAB PO DAILY, #30 TAB 10 Refills Prov:NEERU ALDANA APRNC 04/13/17 Dicyclomine Hcl (DICYCLOMINE HCL) 20 Mg Tablet, 1 TAB PO DAILY, #30 TAB 10 Refills Prov:NEERU ALDANA APRNC 02/17/17 Calcium Carbonate/Vitamin D3 (Caltrate 600 + D Soft Chew Tab) 1 Each Tab.chew, 1 TABCHEW PO BID, #60 TABCHEW 6 Refills Prov:CAITLYN RUDD MD 10/07/16 Ondansetron Hcl (ONDANSETRON HCL) 4 Mg Tablet, 1 TAB PO Q4-6H Y for NAUSEA, #30 TAB 10 Refills Prov:NEERU ALDANA APRNC 08/05/16 Polyvinyl Alcohol/Povidone (ARTIFICIAL TEARS DROPS) 15 Ml Drops, 1 DROP OP PRN Y for ITCHING, #1 BOTTLE 5 Refills Prov:NEERU ALDANA APRN 08/05/16 Mag Hydrox/Al Hydrox/Simeth (ME ACID SUSPENSION) 355 Ml Oral.susp, 15 ML PO Q4H Y for CONSTIPATION, #1 BOTTLE Prov:[facility] 08/05/16 Magnesium Hydroxide (MILK OF MAGNESIA) 400 Mg/5 Ml Oral.susp, 15-30 ML PO DIRECTED Y for CONSTIPATION, #1 BOTTLE Not to exceed 2 doses in 24 hours Prov:[facility] 08/05/16 Fluticasone Propionate (Flonase Allergy Relief) 9.9 Ml [place].susp, 1 SPRAY NA DAILY, #1 BOTTLE 10 Refills Prov:NEERU ALDANA APRN 08/05/16 Polyethylene Glycol 3350 (MIRALAX) 17 Gm Powd.pack, 17 GM PO Mon, Weds, Fri, #1 BOTTLE 10 Refills Prov:[facility] 08/05/16 Reported Medications Acetaminophen (TYLENOL EXTRA STRENGTH) 500 Mg Tablet, 2 TAB PO Q8H Y for PAIN, TAB 07/30/17 Discontinued Scripts Loperamide Hcl (ANTI-DIARRHEAL) 2 Mg Tablet, 2 MG PO DIRECTED Y for DIARRHEA , #30 TAB 10 Refills 2 tab by mouth after 1st loose stool, then take 1tab after subsequent loose stools PRN Prov:NEERU ALDANA APRN [facility] 08/05/16 Guaifenesin/Dextromethorphan (Q-TUSSIN DM SYRUP) 120 Ml Syrup, 5 ML PO Q4-6H Y for COUGH, #237 BOTTLE 3 Refills Prov:NEERU ALDANA APRN [facility] 08/05/16 Mirtazapine (MIRTAZAPINE) 7.5 Mg Tablet, 0.5 TAB PO HS, #30 TAB 6 Refills Prov:JODI LAWSON MD 02/23/15 Levothyroxine Sodium (LEVOTHYROXINE SODIUM) 75 Mcg Tablet, 1 TAB PO QDAY, #30 TAB 10 Refills Prov:[facility] 04/13/17 Allergies: Coded Allergies: NSAIDS (Non-Steroidal Anti-Inflamma (Unverified Allergy, Unknown, GI UPSET -NO ULCERS, 09/01/17) Penicillins (Unverified Adverse Reaction, Unknown, GETS YEAST INFECTION AFTER USING IT, 09/01/17) Patient History: Ankylosing spondylitis Daughter (has HLA-B27 gene.) FH: ME (myocardial infarction) FATHER (ME), , Age:55 FH: dementia MOTHER, , Age:78 Other Social/Family Hx [facility] at [facility] Smoking Status: Current: Every Day Smoker Exposure to Second Hand Smoke?: Yes Hx Alcohol Use: No Hx Substance Use Disorder: No Review of Systems All Systems Reviewed/Normal: Yes, Except as Noted Exam Vital Signs Vital Signs Date Time Temp Pulse Resp B/P (MAP) Pulse Ox O2 Delivery O2 Flow Rate FiO2 09/01/17 19:55 98 Nasal Cannula 1.0 09/01/17 19:46 96.8 78 16 117/63 (81) General Appearance: No Acute Distress (sleepy) Neuro: Other (Doesn't awaken to voice, but does to noxious stimuli. Appears to moving all extremities) Eyes: PERRLA Cardiovascular: Regular Rate and Rhythm Respiratory: Clear to Auscultation GI: Abd Soft and Non-Tender Extremities: No Edema Medical Decision Making Data Points Result Diagram: 09/01/17 1120 09/01/17 1447 Item Value Date Time Blood Urea Nitrogen 22 mg/dl H 08/25/17 0739 Creatinine 1.00 mg/dl 08/25/17 0739 Blood Urea Nitrogen 36 mg/dl H 09/01/17 0809 Creatinine 3.00 mg/dl H 09/01/17 0809 Blood Urea Nitrogen 36 mg/dl H 09/01/17 1120 Creatinine 3.10 mg/dl H 09/01/17 1120 Creatinine 2.30 mg/dl H 09/01/17 1447 Neutrophils (%) (Auto) 59.7 % 09/01/17 1120 Lymphocytes (%) (Auto) 25.4 % 09/01/17 1120 Monocytes (%) (Auto) 11.9 % 09/01/17 1120 Eosinophils (%) (Auto) 2.0 % 09/01/17 1120 Urine RBC None /HPF 09/01/17 1148 Urine WBC 2 /HPF 09/01/17 1148 Urine Squamous Epithelial Cells Few /LPF 09/01/17 1148 Urine Bacteria Negative /HPF 09/01/17 1148 Urine Hyaline Casts Many /LPF H 09/01/17 1148 Urine Mucus None /HPF 09/01/17 1148 Urine Opiates Screen Positive 09/01/17 1148 EKG / Imaging Imaging Brain MRI - 1. No acute finding. 2. No cerebellar abnormality. The finding described on comparison head CT represents artifact. 3. Mild chronic small vessel ischemic change. Head CT - 1. Exam limited by motion, with possible ischemia, inflammation or edema from an underlying mass in the left superior cerebellum, versus artifact. MRI of the brain without and with IV contrast is recommended for further evaluation. 2. No acute hemorrhage. 3. Mild nonspecific white matter disease suspicious for chronic vessel ischemia. Renal US - 1. Atrophic appearing kidneys. Borderline increased renal parenchymal echotexture raising the possibility of medical renal disease. 2. There is no evidence of upper tract obstruction. 3. Limited distention of the urinary bladder. CXR - 1. Mild hyperexpansion lung byers although no evidence of acute- appearing pulmonary consolidation Assessment and Plan Problems: (1) ANTHONY (acute kidney injury) Status: Acute Assessment & Plan: Likely secondary to dehydration and exacerbated by Lisinopril use. FeNa<1%. Apparently, she was started on Wellbutrin about 2 weeks prior to admission and became confused. It was stopped 4 days prior to admission. She was given fluid bolus in the ER and her Creatinine improved significantly. (2) Altered mental status Status: Acute Assessment & Plan: Likely secondary to decreased clearance of centrally acting medications with dehydration and exacerbated by the Ativan given in the ER. Will hold her MS Contin. Will not give Gabapentin tonight. If her MS doesn't improve, will check an ABG because of her LUKE. (3) Ankylosing spondylitis Status: Chronic Assessment & Plan: Chronically on MS Contin and Gabapentin. See above. (4) Depression Status: Chronic Assessment & Plan: Chronically on Duloxetine which will be continued. (5) Hypothyroidism Status: Chronic Assessment & Plan: Continue chronic levothyroxine. (6) LUKE (obstructive sleep apnea) Status: Chronic Assessment & Plan: Will continue her BIPAP. (7) GERD (gastroesophageal reflux disease) Status: Chronic Assessment & Plan: Chronically on omeprazole. Will give Protonix in the hospital. (8) Hypertension, benign Onset Date: 10/05/2014 Status: Chronic Assessment & Plan: Hold lisinopril secondary to ARF. Copies to: NEERU ALDANA APRN RO[employer] Venous Thromboembolism Antithrombotics Is Pt On Any Antithrombotics?: No Exam Sepsis Risk: No Definite Risk Problem Qualifiers (1) Altered mental status: Altered mental status type: disorientation Qualified Codes: R41.0 - Disorientation, unspecified SUSHIL JESUS MD Sep 01, 2017 20:53
[2017-09-01] MEDS: NS(*) 0.9% 1000 ML BAG 1,000 ML IV PRN (21:32)
[2017-09-02 01:57] VITALS: BP 123/55
[2017-09-02] MEDS ORDERED: DICY20TA70 PO (02:54)
[2017-09-02 05:41] VITALS: BP 122/74
[2017-09-02 05:52] LABS: PLATELET COUNT, AUTOMATED 179 K/uL (150-450)
[2017-09-02] MEDS: LEVOTHYROXINE SOD 0.05 MG TAB PO SCH (06:00)
[2017-09-02] MEDS: NS(*) 0.9% 1000 ML BAG 1,000 ML IV PRN ×2 (07:30→18:35)
[2017-09-02 09:47] VITALS: Ht 157.5 cm; Wt 53.1 kg
[2017-09-02 11:09] VITALS: BP 121/52
[2017-09-02] MEDS: ESTRADIOL 1 MG TAB PO SCH (11:19)
[2017-09-02] MEDS: GABAPENTIN 300 MG CAP PO SCH ×3 (11:20→20:40)
[2017-09-02] MEDS: DULoxetine HCL 30 MG CAPCR PO SCH (11:20)
[2017-09-02] MEDS: PANTOPRAZOLE SOD 40 MG TABEC PO SCH (11:21)
--- NOTE | 2017-09-02 11:33 | Hospitalist Progress Note ---
Subjective Progress Notes Subjective This patient was admitted for acute renal failure. She had no acute events overnight. Patient Complains of: Cardiovascular: No: Chest Pain Respiratory: No: Shortness of Breath Physical Exam Vital Signs Date Time Temp Pulse Resp B/P (MAP) Pulse Ox O2 Delivery O2 Flow Rate FiO2 09/02/17 11:09 98.2 84 121/52 (75) 09/02/17 05:41 14 99 Nasal Cannula 2.0 09/02/17 00:11 30.0 Cardiovascular: Regular Rate and Rhythm Respiratory: Clear to Auscultation Result Diagram: 09/02/1751309/02/17513 Assessment and Plan Problems: (1) Acute renal failure Assessment & Plan: She did have an elevated creatinine at admission. This has been improving with IV fluids. (2) Altered mental status Status: Acute Assessment & Plan: She was on several centrally acting medications prior to admission. Her morphine and alprazolam remain on hold, but most of the others have now been restarted. Her mental status has not improved significantly. (3) Ankylosing spondylitis Status: Chronic Assessment & Plan: She is on chronic treatment with MS Contin and Gabapentin. See above. (4) Depression Status: Chronic Assessment & Plan: She is on chronic treatment with duloxetine. (5) Hypothyroidism Onset Date: 09/22/2014 Status: Chronic Assessment & Plan: She is on chronic treatment with levothyroxine. (6) LUKE (obstructive sleep apnea) Status: Chronic Assessment & Plan: She is using BiPAP and also wears this at home. (7) GERD (gastroesophageal reflux disease) Status: Chronic Assessment & Plan: She is on chronic treatment with Prilosec. (8) Hypertension, benign Onset Date: 10/05/2014 Status: Chronic Assessment & Plan: She is on chronic treatment with lisinopril, which is currently on hold secondary to renal failure. Exam Sepsis Risk: No Definite Risk Problem Qualifiers (1) Altered mental status: Altered mental status type: disorientation Qualified Codes: R41.0 - Disorientation, unspecified JUDITH KILGORE DO Sep 02, 2017 11:33
[2017-09-02] MEDS: MESALAMINE 0.375 GM CAP.ER.24H PO SCH (13:09)
[2017-09-02] MEDS ORDERED: DULoxetine HCL 30 MG CAPCR PO SCH (14:00)
[2017-09-02 14:46] VITALS: BP 146/71
[2017-09-02 18:35] VITALS: BP 145/75
[2017-09-02 23:09] VITALS: BP 134/66
[2017-09-03 03:49] VITALS: BP 121/59
[2017-09-03] MEDS: NS(*) 0.9% 1000 ML BAG 1,000 ML IV PRN (05:52)
[2017-09-03] MEDS: LEVOTHYROXINE SOD 0.05 MG TAB PO SCH (05:52)
--- NOTE | 2017-09-03 08:17 | Hospitalist Depart ---
Discharge Summary Reason for Hosp/Final Diag: (1) Acute renal failure Hospital Course & Plan: She did have an elevated creatinine at admission. This has been improved with IV fluids. (2) Altered mental status Status: Acute Hospital Course & Plan: She was on several centrally acting medications prior to admission. Her morphine and alprazolam remain on hold, but most of the others have now been restarted. Her mental status has improved. (3) Ankylosing spondylitis Status: Chronic Hospital Course & Plan: She is on chronic treatment with MS Contin and Gabapentin. See above. (4) Depression Status: Chronic Hospital Course & Plan: She is on chronic treatment with duloxetine. (5) Hypothyroidism Onset Date: 09/22/2014 Status: Chronic Hospital Course & Plan: She is on chronic treatment with levothyroxine. (6) LUKE (obstructive sleep apnea) Status: Chronic Hospital Course & Plan: She is using BiPAP and also wears this at home. (7) GERD (gastroesophageal reflux disease) Status: Chronic Hospital Course & Plan: She is on chronic treatment with Prilosec. (8) Hypertension, benign Onset Date: 10/05/2014 Status: Chronic Hospital Course & Plan: She is on chronic treatment with lisinopril, which is currently on hold secondary to renal failure. Departure Latest Vital Signs Vital Signs 09/02/17 09/03/17 00:11 03:49 Temp 97.6 Pulse 78 Resp 15 B/P (MAP) 121/59 (79) Pulse Ox 99 O2 Delivery Nasal Cannula O2 Flow Rate 2.0 FiO2 30.0 Weight (Pounds): 117 Result Diagram: 09/02/17 0514 09/03/17 0520 Condition: Improved Discharge: Assisted Living Discharge Instructions Home Meds Active Scripts Levothyroxine Sodium (LEVOTHYROXINE SODIUM) 50 Mcg Tablet, 1 TAB PO DAILY, #30 TAB 12 Refills Prov:NEERU ALDANA APRN-C 08/25/17 Mesalamine (APRISO) 0.375 Gm Cap.er.24h, 4 CAP PO DAILY, #120 CAP 5 Refills Prov:NEERU ALDANA APRN-C 07/15/17 Estradiol (ESTRADIOL) 0.5 Mg Tablet, 1 TAB PO QDAY, #30 TAB 10 Refills Prov:NEERU ALDANA APRN-C 07/15/17 Duloxetine HCl (Duloxetine HCl) 30 Mg Capsule.dr, 3 CAP PO DAILY, #90 CAP 10 Refills 2 caps in the morning and 1 cap in the afternoon Prov:NEERU ALDANA APRN 07/15/17 Gabapentin (GABAPENTIN) 300 Mg Capsule, 1 CAP PO TID, #90 CAPSULE 10 Refills Prov:NEERU ALDANA APRN 07/02/17 Calcium Carbonate/Vitamin D3 (Caltrate 600 + D Soft Chew Tab) 1 Each Tab.chew, 1 TABCHEW PO BID, #60 TABCHEW 6 Refills Prov:CAITLYN RUDD MD 10/07/16 Polyvinyl Alcohol/Povidone (ARTIFICIAL TEARS DROPS) 15 Ml Drops, 1 DROP OP PRN Y for ITCHING, #1 BOTTLE 5 Refills Prov:NEERU ALDANA APRN 08/05/16 Magnesium Hydroxide (MILK OF MAGNESIA) 400 Mg/5 Ml Oral.susp, 15-30 ML PO DIRECTED Y for CONSTIPATION, #1 BOTTLE Not to exceed 2 doses in 24 hours Prov:NEERU ALDANA APRN 08/05/16 Fluticasone Propionate (Flonase Allergy Relief) 9.9 Ml [place].susp, 1 SPRAY NA DAILY, #1 BOTTLE 10 Refills Prov:NEERU ALDANA APRN 08/05/16 Polyethylene Glycol 3350 (MIRALAX) 17 Gm Powd.pack, 17 GM PO Mon, Weds, Thu, #1 BOTTLE 10 Refills Prov:NEERU ALDANA APRN 08/05/16 Reported Medications Dicyclomine Hcl (DICYCLOMINE HCL) 20 Mg Tablet, 20 MG PO BID 09/02/17 Acetaminophen (TYLENOL EXTRA STRENGTH) 500 Mg Tablet, 1-2 TAB PO Q8H Y for PAIN , TAB 07/30/17 Discontinued Scripts Morphine Sulfate (MORPHINE SULFATE ER) 30 Mg Tablet.er, 1 TAB PO Q12H, #60 TAB 0 Refills Prov:NEERU ALADNA APRN 08/13/17 Bupropion Hcl (BUPROPION XL) 150 Mg Tab.er.24h, 1 TAB PO BID, #60 TAB 2 Refills take one tab daily x 3 days then increase to 1 tab twice daily thereafter Prov:KATYANEERU ARACELI [facility] [employer] 07/24/17 Atorvastatin Calcium (ATORVASTATIN CALCIUM) 20 Mg Tablet, 1 TAB PO QHS, #90 TAB 1 Refill Prov:MADELINEAnnettePRINCESSNEERU DAIN [facility] 07/02/17 Omeprazole (OMEPRAZOLE) 20 Mg Capsule.dr, 1 CAP PO QAM, #90 CAP 3 Refills [facility] 06/24/17 Glucosamine Sulfate 2KCL (GLUCOSAMINE) 1,000 Mg Tablet, 1 TAB PO DAILY, #30 TAB 12 Refills Prov:[facility]DA[facility] 05/14/17 Alprazolam 0.25 Mg Tab (XANAX 0.25 MG TAB) 0.25 Mg Tablet, 0.5-1 TAB PO BID Y for ANXIETY, #60 TAB 2 Refills Prov:[facility]DANA [facility] 04/29/17 Lisinopril (LISINOPRIL) 2.5 Mg Tablet, 1 TAB PO DAILY, #30 TAB 10 Refills Prov:NEERU ALDANA APRN [facility] 04/13/17 Ondansetron Hcl (ONDANSETRON HCL) 4 Mg Tablet, 1 TAB PO Q4-6H Y for NAUSEA, #30 TAB 10 Refills Prov:NEERU ALDANA APRN [facility] 08/05/16 Dicyclomine Hcl (DICYCLOMINE HCL) 20 Mg Tablet, 1 TAB PO DAILY, #30 TAB 10 Refills Prov:NEERU ALDANA APRN [facility] 02/17/17 Mag Hydrox/Al Hydrox/Simeth (SD ACID SUSPENSION) 355 Ml Oral.susp, 15 ML PO Q4H Y for CONSTIPATION, #1 BOTTLE Prov:[facility]DANA [facility] 08/05/16 Loperamide Hcl (ANTI-DIARRHEAL) 2 Mg Tablet, 2 MG PO DIRECTED Y for DIARRHEA , #30 TAB 10 Refills 2 tab by mouth after 1st loose stool, then take 1tab after subsequent loose stools PRN Prov:NEERU ALDANA APRN [facility] 08/05/16 Guaifenesin/Dextromethorphan (Q-TUSSIN DM SYRUP) 120 Ml Syrup, 5 ML PO Q4-6H Y for COUGH, #237 BOTTLE 3 Refills Prov:NEERU ALDANA APRN [employer] 08/05/16 Mirtazapine (MIRTAZAPINE) 7.5 Mg Tablet, 0.5 TAB PO HS, #30 TAB 6 Refills Prov:JODI LAWSON MD 02/23/15 Diet: Regular Activity: As Tolerated Venous Thromboembolism Antithrombotics Is Pt On Any Antithrombotics?: No Problem Qualifiers (1) Altered mental status: Altered mental status type: disorientation Qualified Codes: R41.0 - Disorientation, unspecified JUDITH KILGORE DO Sep 03, 2017 08:17
[2017-09-03 08:52] VITALS: BP 148/84
[2017-09-03] MEDS: ESTRADIOL 1 MG TAB PO SCH (09:24)
[2017-09-03] MEDS: MESALAMINE 0.375 GM CAP.ER.24H PO SCH (09:24)
[2017-09-03] MEDS: DULoxetine HCL 30 MG CAPCR PO SCH (09:24)
[2017-09-03] MEDS: GABAPENTIN 300 MG CAP PO SCH (09:25)
[2017-09-03] MEDS: PANTOPRAZOLE SOD 40 MG TABEC PO SCH (09:25)
[2017-09-03] MEDS ORDERED: INFLUENZA VIRUS VAC 0.5 ML SYR IM ONLY ONE (20:20)
[2017-09-04] MEDS ORDERED: MORP20CA PO ×3 (15:29→17:41)
== END 2017-09-03 10:50 | DRG 684 ==
LOC: ER 10:58 → MED 18:52
PROVIDERS: ADMIT Internal Medicine; ATTEND Internal Medicine
PROC: 5A09357 Assistance with Respiratory Ventilation, Less than 24 Consecutive Hours, Continuous Positive Airway Pressure (ICD-10-PCS; principal; 2017-09-01)
DX: N17.9 Acute kidney failure, unspecified (principal); M45.9 Ankylosing spondylitis of unspecified sites in spine; F32.9 Major depressive disorder, single episode, unspecified; K21.9 Gastro-esophageal reflux disease without esophagitis; G47.33 Obstructive sleep apnea (adult) (pediatric); E03.9 Hypothyroidism, unspecified; E86.0 Dehydration; I10 Essential (primary) hypertension; G89.29 Other chronic pain; R32 Unspecified urinary incontinence; R25.1 Tremor, unspecified; F17.210 Nicotine dependence, cigarettes, uncomplicated; T46.4X5A Adverse effect of angiotensin-converting-enzyme inhibitors, initial encounter; T42.4X5A Adverse effect of benzodiazepines, initial encounter; F03.90 Unspecified dementia, unspecified severity, without behavioral disturbance, psychotic disturbance, mood disturbance, and anxiety; M81.0 Age-related osteoporosis without current pathological fracture; R41.0 Disorientation, unspecified; Z87.440 Personal history of urinary (tract) infections; Z88.0 Allergy status to penicillin; Z88.8 Allergy status to other drugs, medicaments and biological substances; Z90.710 Acquired absence of both cervix and uterus
CPT/HCPCS: 36415; 70450; 70551; 71020; 76705; 80305; 81001; 82040; 82247; 82310; 82374; 82435; 82465; 82565; 82570; 82947; 83718; 83935; 84075; 84132; 84155; 84295; 84300; 84450; 84460; 84478; 84520; 85025; 94660; 96361; 96374; 97161; 97165; 99285; A9577; J2060; J7030; J7120

== ENCOUNTER → 2017-10-20 | Outpatient (CLI) | payer MEDICARE, MEDICAID ==
[2017-09-02 09:47] VITALS: BMI 21.4
== END ==
LOC: ZZSPRING 02:02
PROVIDERS: ATTEND Nurse Practitioner Family
DX: E03.9 Hypothyroidism, unspecified (principal)
CPT/HCPCS: 36415; 84443

== ENCOUNTER → 2017-12-18 | Outpatient (CLI) | payer MEDICARE, MEDICAID ==
[2017-09-02 09:47] VITALS: BMI 21.4
[~2017-12-18] MED LIST changes: +PNEU0.5D3 IM
[2017-12-18 14:49] LABS: PLATELET COUNT, AUTOMATED 277 K/uL (150-450)
== END ==
LOC: LAB 14:25
PROVIDERS: ATTEND Nurse Practitioner Family
DX: I12.9 Hypertensive chronic kidney disease with stage 1 through stage 4 chronic kidney disease, or unspecified chronic kidney disease (principal); N17.9 Acute kidney failure, unspecified; E03.9 Hypothyroidism, unspecified
CPT/HCPCS: 36415; 82040; 82247; 82310; 82374; 82435; 82565; 82947; 84075; 84132; 84155; 84295; 84443; 84450; 84460; 84520; 85025

== ENCOUNTER → 2018-06-08 | Outpatient (CLI) | payer MEDICARE, MEDICAID ==
[2017-09-02 09:47] VITALS: BMI 21.4
[~2018-06-08] MED LIST changes: -LOSA100T67 PO; +LOSA100T69 PO; -LOSA50TA72 PO; +LOSA50TA74 PO; +MORP10CA3 PO; +MORP10SO10 PO
== END ==
LOC: ZZSPRING 02:02
PROVIDERS: ATTEND Nurse Practitioner Family
DX: E03.9 Hypothyroidism, unspecified (principal); R10.9 Unspecified abdominal pain; F41.9 Anxiety disorder, unspecified
CPT/HCPCS: 36415; 82040; 82247; 82310; 82374; 82435; 82565; 82947; 84075; 84132; 84155; 84295; 84443; 84450; 84460; 84520

== ENCOUNTER → 2018-11-02 | Outpatient (CLI) | payer MEDICARE, MEDICAID ==
[2017-09-02 09:47] VITALS: BMI 21.4
[~2018-11-02] MED LIST changes: -DESM0.1T12 PO; -DESM0.2T15 PO; +DESM0.2T27 PO; +LISI-362 PO; -LOSA100T69 PO; +LOSA100T75 PO; -LOSA50TA74 PO; +LOSA50TA80 PO; +TRAZ50TA34 PO; +[UNRECOGNIZED DRUG - CODE] PO
== END ==
LOC: ZZSPRING 01:15
PROVIDERS: ATTEND Nurse Practitioner Family
DX: I10 Essential (primary) hypertension (principal)
CPT/HCPCS: 36415; 82310; 82374; 82435; 82565; 82947; 84132; 84295; 84520

== ENCOUNTER → 2018-11-06 | Outpatient (REF) | payer MEDICARE, MEDICAID ==
[2017-09-02 09:47] VITALS: BMI 21.4
== END ==
LOC: ZZSPRING 18:37
PROVIDERS: ATTEND Nurse Practitioner Primary Care
DX: J11.1 Influenza due to unidentified influenza virus with other respiratory manifestations (principal)
CPT/HCPCS: 87502

== ENCOUNTER → 2018-11-14 | Outpatient (REF) | payer MEDICARE, MEDICAID ==
[2017-09-02 09:47] VITALS: BMI 21.4
== END ==
LOC: ZZSPRING 06:48
PROVIDERS: ATTEND Nurse Practitioner Family
DX: R30.0 Dysuria (principal)
CPT/HCPCS: 81001; 87088

== ENCOUNTER → 2019-03-08 | Outpatient (CLI) | payer MEDICARE, MEDICAID ==
[2017-09-02 09:47] VITALS: BMI 21.4
[~2019-03-08] MED LIST changes: -OMEP-125 PO; +OMEP-126 PO; -TRAZ50TA34 PO; +TRAZ50TA52 PO
[2019-03-08 09:04] LABS: PLATELET COUNT, AUTOMATED 200 K/uL (150-450)
== END ==
LOC: ZZSPRING 02:06
PROVIDERS: ATTEND Nurse Practitioner Family
DX: K51.90 Ulcerative colitis, unspecified, without complications (principal); E03.9 Hypothyroidism, unspecified; I10 Essential (primary) hypertension; Z79.899 Other long term (current) drug therapy
CPT/HCPCS: 36415; 82040; 82247; 82310; 82374; 82435; 82465; 82565; 82947; 83718; 84075; 84132; 84155; 84295; 84443; 84450; 84460; 84478; 84520; 85025

== ENCOUNTER → 2019-04-19 | Outpatient (CLI) | payer MEDICARE, MEDICAID ==
[2017-09-02 09:47] VITALS: BMI 21.4
[~2019-04-19] MED LIST changes: +ATOR40TA69 PO
[2019-04-19 08:47] LABS: PLATELET COUNT, AUTOMATED 196 K/uL (150-450)
== END ==
LOC: ZZSPRING 01:28
PROVIDERS: ATTEND Nurse Practitioner Family
DX: R63.4 Abnormal weight loss (principal)
CPT/HCPCS: 36415; 82040; 82247; 82310; 82374; 82435; 82565; 82947; 84075; 84132; 84155; 84295; 84443; 84450; 84460; 84520; 85025

== ENCOUNTER → 2019-05-05 | Outpatient (CLI) | payer MEDICARE, MEDICAID ==
[2017-09-02 09:47] VITALS: BMI 21.4
--- NOTE | 2019-05-05 16:23 | RADIOLOGY IMAGING REPORT ---
FACILITY: [facility] - [place] PATIENT NAME: ADAN GRANADOS : [id number] MR: [id number] V: [id number] EXAM DATE: [id number] ORDERING PHYSICIAN: NEERU ALDANA TECHNOLOGIST: Josefina Merida PROCEDURE: BILATERAL DIGITAL SCREENING MAMMOGRAM WITH CAD ASSISTED INTERPRETATION & 3D TOMOSYNTHESIS REASON FOR STUDY: Screening. COMPARISON: 09/09/16, 01/09/16. VIEWS OBTAINED: Bilateral 2D & 3D full field CC & MLO projections. BREAST DENSITY: The breast parenchyma is heterogeneously dense. MAMMOGRAM FINDINGS: There are no mammographic findings concerning for malignancy. No significant interval change. IMPRESSION: BIRADS 1: Negative. DIAGNOSTIC CATEGORY 1--NEGATIVE. RECOMMENDATIONS: ROUTINE MAMMOGRAM IN 1YR AND CLINICAL EVALUATION. Dictated by: Yaw Negrete on 05/05/2019 at 16:13 Transcribed by: MARLEN on 05/05/2019 at 16:17 Approved by: Yaw Negrete on 05/05/2019 at 16:18 [facility]
--- NOTE | 2019-05-05 17:14 | RADIOLOGY IMAGING REPORT ---
FACILITY: [facility] - [place] PATIENT NAME: Ying Horton : 1950 MR: [id number] V: [id number] EXAM DATE: ORDERING PHYSICIAN: NEERU ALDANA TECHNOLOGIST: Location: [facility] - [place] Patient: Ying Horton : 1950 Visit/Account:[id number] Date of Sevice: 05/05/2019 DEXA Scan 05/05/2019 7:43 AM HISTORY: screening Comparison: DEXA scan from 01/09/2016. LUMBAR SPINE: The bone mineral density (BMD) measured from L1-L4 correlates with a Z-score of 1.4 and a T-score of -0.8 which is within lower normal range as defined by the World Health Organization. The correspondi ng risk of fracture in the lumbar spine is increased under 2 times compared with a young adult refere nce population. This value has increased by 12.4 % since the prior study. More than 5% change is co nsidered significant. HIP: Bone mineral density (BMD) measured in the Left total hip region correlates with a Z-score 0.6 and a T-score of -1.1 which is mildly osteopenic as defined by the World Health Organization. The correspo nding risk of fracture in the hip is increased 2-3 times compared with a young adult reference popula tion. This value has decreased by 0.3 % since the prior study. More than 5% change is considered sig nificant. Bone mineral density (BMD) measured in the Femoral Neck region measures 0.786 g/cm2. T-score is -1. 8. IMPRESSION: 1. Lumbar spine: Within lower normal range. There has been a significant interval increase in the b one mineral density since the previous exam. 2. Left Total Hip: Mild osteopenia. There has been No significant change in the bone mineral densit y since the previous exam. 3. Femoral Neck: Bone Mineral Density is 0.786 g/cm2. Moderate osteopenia. The next DEXA scan of this patient should include the following sites: L1-L4 and the left hip. FRAX? WHO Fracture Risk Assessment Tool link: <http://www.shef.ac.uk/FRAX/tool.jsp?[email or web address]> PLEASE NOTE: 1) The World Health Organization defines low BMD as follows: T-score Normal > -1 Osteopenia < -1 and > -2.5 Osteoporosis < -2.5 without fractures Established osteoporosis < -2.5 with fractures 2) In general, you may wish to consider: Diagnosis Treatment Follow-up DEXA Normal BMD Prevention 2-3 years Osteopenia Prevention/therapy 1-2 years Osteoporosis Therapy Yearly 3) Fracture risk estimated from the T-score is more accurate for vertebral fractures (often spontane ous) than for hip fractures. Report Dictated By: Yaw Negrete MD at 05/05/2019 5:03 PM Report E-Signed By: Yaw Negrete MD at 05/05/2019 5:05 PM SOFÍA:MARK
== END ==
LOC: MAMO 03:54
PROVIDERS: ATTEND Nurse Practitioner Family
DX: Z12.39 Encounter for other screening for malignant neoplasm of breast (principal); Z78.0 Asymptomatic menopausal state; M85.80 Other specified disorders of bone density and structure, unspecified site
CPT/HCPCS: 77063; 77067; 77080